=== PATIENT | male | born 1940 | race Caucasian/White ===

== ENCOUNTER 2019-05-24 16:40 | Emergency (ER) | payer MEDICARE, BC, OTHER ==
[~2019-05-24] VITALS: Ht 172.7 cm; Wt 59.0 kg
[~2019-05-24 16:40] MED LIST: CLOPIDOGREL75 MG; IMDUR 30 MG TAB30 M1; LIVALO2 MG; MELOXICAM7.5 MG; PANTOPRAZOLE SO40 M1; PLAVIX 75 MG TA75 M1; QUINAPRIL 20 MG20 MG; TAMSULOSIN HCL0.4 M1
[2019-05-24 17:02] VITALS: BP 155/71
== END 2019-05-24 17:03 | disposition home or self-care (01) ==
LOC: M.ERS 16:40
DX: B02.9 Zoster without complications (principal); Z88.8 Allergy status to other drugs, medicaments and biological substances; Z86.73 Personal history of transient ischemic attack (TIA), and cerebral infarction without residual deficits